=== PATIENT | female | born 1985 | race African-American/Black ===

== ENCOUNTER → 2024-09-10 11:53 | Outpatient (REF) | payer OTHER, SELFPAY | LOC: REG 11:53 | PROVIDERS: ATTENDING PHYSICIAN Surgery | DX: Z01.812 Encounter for preprocedural laboratory examination (principal) | CPT/HCPCS: 36415; 86850; 86900; 86901 ==

== ENCOUNTER 2024-09-18 06:04 | Day surgery (SDC) | payer OTHER, SELFPAY ==
[2024-09-18] VITALS (8 sets, daily range): BP systolic 99–117; BP diastolic 61–69; BMI 22.6
[2024-09-18] MEDS: TYLENOL 1000 MG PO (06:46)
[2024-09-18] MEDS: NORMOSOL-R/PLASMALYTE-A 1000 IV (06:47)
[2024-09-18 07:12] LABS: Hematocrit 24.1 % (37.0-47.0); Hemoglobin 8.1 g/dL (12.0-16.0); Mean Corp Hgb Conc. 33.6 g/dL (33.0-37.0); Mean Corpuscular Hgb 26.1 pg (27.0-31.0); Mean Corpuscular Volume 77.7 fL (81.0-99.0); Platelet Count 441 10^3/uL (130-400); Red Cell Dist. Width 18.5 % (11.5-14.5); White Blood Cell Count 7.2 10^3/uL (4.8-10.8)
--- NOTE | 2024-09-18 07:13 | W.SUR.PREOP ---
Pre-Operative Surgical Note
-
I have examined this patient prior to the performance of the scheduled procedure.
The patient's condition is unchanged from the time of the current History and
Physical and the patient is able to undergo the scheduled procedure.
--- NOTE | 2024-09-18 09:27 | W.IMMPOSTOP ---
Surgical Immed Post Op Note
-
Primary Surgeon: Serg Chaudhry MD
Assisting Surgeon: None
Loan Review Officer: FIDEL King
Pre-op Diagnosis: Biliary colic
Post-op Diagnosis: Chronic cholecystitis, right ovarian mass, hemoperitoneum
Procedure Performed: Laparoscopic cholecystectomy with cholangiogram
Anesthesia Type: General
Specimen / Cultures: Gallbladder and contents
Estimated Blood Loss: 7 cc
Complications: None
Operative Findings: Infraumbilical Evangelist entry. Hemoperitoneum noted on entry particularly in the pelvis and along the right colic gutter. Not entirely unexpected as patient is on her period. Large right ovarian cysts with small bowel adherent
to it. No evidence of small bowel obstruction. No peritoneal implants noted. Somewhat enlarged liver with blunted edges. Gallbladder with fairly thick adhesions to the surrounding tissues lysed with electrocautery, sharp and blunt dissection.
Critical view of safety obtained prior to a cholangiogram which demonstrated no distal filling defects, normal biliary anatomy and free flow of contrast into the duodenum. The duct was ligated with a clip followed by a 0 PDS Endoloop. No spillage
of bile or stones.
POST OP PLAN:
Intraoperative findings reviewed with patient and mother who is a physician. Will plan for outpatient workup of her right ovarian mass. Will still plan for discharge today.
--- NOTE | 2024-09-18 10:49 | OR.RPT ---
Addendum entered and electronically signed by Serg Chaudhry MD 09/18/24 11:21:
5000 units of heparin were given preoperatively
Original Note:
Operative Report
Operative Report
Patient Name: Edith Guerra
: 1985
Date of Operation: 09/18/2024
Preoperative Diagnosis: Biliary colic
Postoperative Diagnosis: Chronic cholecystitis, right ovarian mass, hemoperitoneum
Procedure(s):
Laparoscopic Cholecystectomy with Cholangiogram
Surgeon(s):
Dr. Chaudhry
Lens Cementer(s):
FIDEL King
Anesthesia: General
Estimated Blood Loss: 7 cc
Urine Output: None
Drains/Lines/Implants: None
Specimens:
1. Gallbladder and contents
HPI/Surgical Indications:
This is a 39-year-old female with known sickle cell disease, currently on her menses and reported uterine fibroid who was seen in the office last week for postprandial right upper quadrant pain. Exam, labs and imaging are consistent with symptomatic
cholelithiasis. Risks/Benefits/Alternatives were discussed at length, and the patient agreed to proceed with surgery. A preoperative hemoglobin and type and screen was obtained. After discussion with her emissions engineer, she was prescribed a course
of therapeutic Eliquis
Operative Findings: Infraumbilical Evangelist entry. Hemoperitoneum noted on entry particularly in the pelvis and along the right colic gutter. Not entirely unexpected as patient is on her period. Large right ovarian cysts with small bowel adherent
to it. No evidence of small bowel obstruction. No peritoneal implants noted. Somewhat enlarged liver with blunted edges. Gallbladder with fairly thick adhesions to the surrounding tissues lysed with electrocautery, sharp and blunt dissection.
Critical view of safety obtained prior to a cholangiogram which demonstrated no distal filling defects, normal biliary anatomy and free flow of contrast into the duodenum. The duct was ligated with a clip followed by a 0 PDS Endoloop. No spillage
of bile or stones.
Procedure Description:
The patient was brought to the Operating Room and placed in the supine position with one arm tucked. A mass could be palpated in the right lower quadrant. Following uneventful induction of general endotracheal anesthesia.. The abdomen was prepped
and draped in the usual sterile fashion. A timeout was performed confirming the procedure, consent, and that IV antibiotics were infused and sequential compression devices were confirmed to be on. The abdomen was entered using an infraumbilical
open Evangelist technique with a 12 mm balloon-tipped trocar. Pneumoperitoneum to 15 mmHg pressure was obtained without difficulty and we confirmed that no injury had occurred during our entry. We did note however a small amount of hemoperitoneum
though this was not completely surprising giving her history of menses. But what was somewhat unexpected was large right ovary with small bowel plastered over it surface, thankfully there was no evidence of bowel obstruction. No peritoneal
implants were noted. Looking at the liver, it did appear somewhat enlarged with blunted edges. The patient was positioned in reverse Trendelenberg and rotated with the right side up slightly. Three (3) 5mm trocars were then placed along the right
subcostal margin. A locking grasping forceps was placed on the fundus of the gallbladder where it was then retracted cephalad and to the right. Using appropriate grasping instruments, the adhesions over the gallbladder which were fairly thick were
lysed using electrocautery, sharp and blunt dissection. The peritoneum overlying the triangle of Calot was incised and extended superiorly on both the anterior and posterior gallbladder lange. The infundibulum was dissected off the cystic plate.
The cystic triangle was dissected until a critical view of safety was achieved. The cystic artery was medialized, dissected and controlled with 2 proximal clips and 1 distal. The cystic duct/gallbladder junction in turn was identified, dissected
circumferentially and a clip was placed. A ductotomy was made and a cholangiocatheter on an Todd clamp was inserted into the cystic duct. A C-arm was draped and brought into the field. An intra-operative cholangiogram was performed and was noted to
have:
No filling defects in the biliary tree
No significant biliary dilation
Brisk flow of contrast into the duodenum
Normal biliary anatomy
The catheter was then removed and the cystic duct was controlled with a clip followed by a 0 PDS Endoloop around both the cystic artery and cystic duct which were in close proximity to each other. After ensuring both the artery and duct were
divided, the gallbladder was freed from the liver using electrocautery. There was no spillage of bile or stones. The gallbladder bed was inspected and excellent hemostasis was obtained. The gallbladder was extracted through the 12 mm trocar site
using an endocatch bag. The abdomen was again irrigated and excellent hemostasis was assured. All remaining trocars were then removed and the pneumoperitoneum was evacuated. The 12 mm trocar site was closed using 0 PDS suture. All trocar sites
were closed at the skin level using 4-0 Monocryl followed by Dermabond. Overall, the patient tolerated the procedure well and was taken to the Recovery Room postoperatively in stable condition.
Bryan was the attending physician and performed the procedure with assistance of the PA above. The assistance of FIDEL King was required due to the complexity of the procedure. During the procedure Shivani assisted with port placement, retraction,
resection, and closure of the wound. I was present for all portions of the case, excluding skin closure.
Serg Chaudhry MD
== END 2024-09-18 10:48 | disposition home or self-care (01) ==
LOC: SDS 06:04
PROVIDERS: ATTENDING PHYSICIAN Surgery
DX: K80.64 Calculus of gallbladder and bile duct with chronic cholecystitis without obstruction (principal); N83.9 Noninflammatory disorder of ovary, fallopian tube and broad ligament, unspecified
CPT/HCPCS: 47563; 88304; 74300; 76000; 85027; 86850; 86900; 86901; A4300